=== PATIENT | male | born 1980 | race Hispanic/Latino ===

== ENCOUNTER 2021-03-05 09:32 | Day surgery (SDC) | payer OTHER ==
[2021-03-04 09:22] LABS: BASOPHILS % (AUTO) 0.4 % (0.0-5.0); EOSINOPHILS % (AUTO) 2.6 % (0.0-8.0); HEMATOCRIT 46.5 % (42-54); LYMPHOCYTES % (AUTO) 32.5 % (21.0-51.0); MEAN CORPUSCULAR HEMOGLOBIN 29.3 pg (27.0-33.0); MEAN CORPUSCULAR HGB CONC 34.2 g/dL (32.0-36.0); MEAN CORPUSCULAR VOLUME 85.6 fL (79-99); NEUTROPHILS % (AUTO) 55.3 % (40.0-77.0); PLATELET COUNT (AUTO) 173 K/uL (130-400); RED BLOOD CELL COUNT(AUTO) 5.43 MIL/uL (4.50-6.20); RED CELL DISTRIBUTION WIDTH 12.5 % (11.0-15.5)
[2021-03-04 09:34] LABS: POTASSIUM 4.1 mmol/L (3.5-5.1)
[2021-03-04 10:27] VITALS: BP 134/64
[2021-03-05] VITALS (15 sets, daily range): BP systolic 116–139; BP diastolic 64–82
[~2021-03-05] VITALS: Ht 177.8 cm; Wt 96.1 kg
[~2021-03-05 09:32] MED LIST: CEFAZOLIN SODIUM 1 GM VIAL ONE; LACTATED RINGERS 1000ML 1,000 ML IV ONE; PANT20TA18 PO
[2021-03-05] MEDS ORDERED: LIDOCAINE PF 100MG/5ML (2%) SYRINGE 5ML ONE (11:28)
[2021-03-05] MEDS ORDERED: MIDAZOLAM HCL 1 MG/ML 2ML VIAL ONE ×2 (11:30→12:33)
[2021-03-05] MEDS ORDERED: ROCURONIUM 10MG/1ML SYR 10 MG/ML ML ONE ×2 (11:30→13:36)
[2021-03-05] MEDS ORDERED: FENTANYL CITRATE PF 50 MCG/1 ML 2ML VIAL ONE ×4 (11:30→15:37)
[2021-03-05] MEDS ORDERED: PROPOFOL 10 MG/ML 20ML VIAL IV ONE (11:30)
[2021-03-05] MEDS ORDERED: BUPIVACAINE/PF 0.25% 30ML VIAL IJ ONE (11:36)
[2021-03-05] MEDS ORDERED: ROPIVACAINE 0.5% 5MG/ML 30ML IJ ONE (12:32)
[2021-03-05] MEDS ORDERED: CEFAZOLIN SODIUM 1 GM VIAL ONE (12:46)
[2021-03-05] MEDS ORDERED: CEFAZOLIN SODIUM 2 GM VIAL IV ONE (13:10)
[2021-03-05] MEDS ORDERED: ONDANSETRON 4MG INJ ONE (13:20)
[2021-03-05] MEDS ORDERED: DEXAMETHASONE SOD PHOSPHATE 10MG/ML 1ML VIAL ONE (13:20)
[2021-03-05] MEDS ORDERED: KETOROLAC 30MG VIAL (30MG/ML) ONE (15:02)
[2021-03-05] MEDS ORDERED: NEOSTIGMINE 5MG/5ML SYR IV ONE (15:30)
[2021-03-05] MEDS ORDERED: MEPERIDINE-PF 25 MG/ML SYG ONE (15:30)
[2021-03-05] MEDS ORDERED: GLYCOPYRROLATE 1 MG/5 ML SYRINGE ONE (15:30)
[2021-03-05] MEDS ORDERED: HYDR-4060 PO (15:54)
[2021-03-05] MEDS ORDERED: CEPH500B PO (15:54)
[2021-03-05] MEDS ORDERED: IBUP-2077 PO (15:54)
== END 2021-03-05 17:15 | disposition home or self-care (01) ==
LOC: DAH 09:32
PROVIDERS: ATTEND Orthopaedic Surgery
DX: S83.511A Sprain of anterior cruciate ligament of right knee, initial encounter (principal); Z20.822 Contact with and (suspected) exposure to COVID-19; S83.271A Complex tear of lateral meniscus, current injury, right knee, initial encounter; K21.9 Gastro-esophageal reflux disease without esophagitis; E78.00 Pure hypercholesterolemia, unspecified; G47.00 Insomnia, unspecified; F17.210 Nicotine dependence, cigarettes, uncomplicated; Z88.8 Allergy status to other drugs, medicaments and biological substances; Z83.3 Family history of diabetes mellitus; Z90.49 Acquired absence of other specified parts of digestive tract; X58.XXXA Exposure to other specified factors, initial encounter; Y93.89 Activity, other specified; Y92.89 Other specified places as the place of occurrence of the external cause
CPT/HCPCS: 29881; 29888; 36415; 64447; 76942; 80048; 85025; 87426; A4215; A4221; A4222; A4223; A4649 ×5; A4663; A4930; A5120; A6223; C1713; C1762; C1776 ×2; J0690 ×3; J1100; J1885; J2001; J2175; J2250; J2405; J2704; J2710; J2795; J3010 ×4; J3490 ×2; J7030; J7120